=== PATIENT | female | born 1990 | race African-American/Black ===

== ENCOUNTER 2016-09-05 17:51 | Emergency (ER) | payer OTHER ==
[~2016-09-05] VITALS: Ht 162.6 cm; Wt 70.8 kg
== END 2016-09-05 19:23 | disposition home or self-care (01) ==
LOC: ED 17:51
DX: K52.9 Noninfective gastroenteritis and colitis, unspecified (principal); K21.9 Gastro-esophageal reflux disease without esophagitis; R19.7 Diarrhea, unspecified; R11.2 Nausea with vomiting, unspecified
CPT/HCPCS: 81000; 96372; 99283; J1885; J2550

== ENCOUNTER 2018-10-25 22:23 | Emergency (ER) | payer OTHER ==
[~2018-10-25] VITALS: Ht 165.1 cm; Wt 74.8 kg
[2018-10-25 23:50] VITALS: BP 110/70; TEMP 98.1
== END 2018-10-25 23:50 | disposition home or self-care (01) ==
LOC: ED 22:23
DX: J06.9 Acute upper respiratory infection, unspecified (principal)
CPT/HCPCS: 87502; 87651; 99283